=== PATIENT | female | born 1975 | race Caucasian/White ===

== ENCOUNTER 2016-09-21 08:06 | Emergency (ER) | payer MEDICARE | END 2016-09-21 08:39 | disposition home or self-care (01) | DX: K04.7 Periapical abscess without sinus (principal); F17.200 Nicotine dependence, unspecified, uncomplicated ==

== ENCOUNTER 2016-12-25 20:17 | Emergency (ER) | payer MEDICARE ==
[2016-12-25 20:40] LABS: BILIRUBIN,URINE NEGATIVE (NEGATIVE); PH,URINE 6.5 PH (5.0-7.5)
[2016-12-25 20:52] LABS: UA CHARGE (STRIP ONLY) YES; UR CULTURE IF IND NOT INDICATED
[2016-12-25] MEDS ORDERED: SODIUM CHLORIDE 0.9% 1,000 ML IV ONE (21:06)
[2016-12-25] MEDS ORDERED: DEXAMETHASONE 10 MG/ML VIAL IVP STA (21:06)
[2016-12-25] MEDS ORDERED: DEXAMETHASONE 10 MG/ML VIAL ONE (21:07)
--- NOTE | 2016-12-25 21:12 | ED Physician Documentation ---
PD HPI BACK PAIN - Stated complaint Stated Complaint: BACK PX - Chief complaint Chief Complaint: Back Pain - History obtained from History obtained from: Patient - History of Present Illness Timing - onset: How many weeks ago (2) Timing - duration: Weeks (2) Timing - details: Abrupt onset, Still present, Waxing and waning Location: Mid Quality: Pain, Spasm, Sharp, Similar to prior episodes Associated symptoms: No: Fever, Weakness, Numbness, Incontinent of urine, Unable to urinate, Hematuria, Incontinent of stool Improves with: Rest, Position Worsened by: Movement Contributing factors: Other (grand child has been ill and she has been holding him longer than usual) Similar symptoms before: Diagnosis (back spasm) Recently seen: Not recently seen - Additional information Additional information: 41 y/o female with hx of untreated diabetes 2 has had back spasm episodes lasting about 2 days 2weeks ago and then again several days later and now since yesterday and this time she was laying all day on the heating pad and can barely move. She has enough spasm that she is having a hard time breathing deeply and she is worried about her kidneys. She is a diabetic and she does not treat her diabetes and usually runs sugars in the 350 range and she is symptomatic when her sugar is below 220. She reports she is only getting up once per night to urinate and this is an improvement from before she came to [place] when she was getting up 4 times per night. Review of Systems Constitutional: denies: Fever, Chills Eyes: denies: Decreased vision Ears: denies: Ear pain Nose: reports: Rhinorrhea / runny nose, Congestion Throat: denies: Sore throat Cardiac: denies: Chest pain / pressure, Palpitations Respiratory: reports: Cough. denies: Dyspnea GI: reports: Nausea, Vomiting (vomits every morning). denies: Abdominal Pain : denies: Dysuria, Frequency, Discharge Skin: denies: Rash Musculoskeletal: reports: Back pain. denies: Neck pain, Extremity pain, Joint pain, Joint swelling Neurologic: denies: Generalized weakness, Focal weakness, Numbness PD PAST MEDICAL HISTORY - Past Medical History Past Medical History: Yes Cardiovascular: None Respiratory: None Neuro: None Endocrine/Autoimmune: Other GI: None LAPPER: None : None HEENT: None Musculoskeletal: Chronic back pain Derm: None Other Past Medical History: pt states "i'm an undiagnosed diabetic" - Past Surgical History Past Surgical History: Yes General: Appendectomy Ortho: Carpal Tunnel surgery /LAPPER: section, Hysterectomy, Breast reduction - Present Medications Home Medications: Ambulatory Orders Medication Instructions Recorded Confirmed Cyclobenzaprine [Flexeril] 10 mg PO TID PRN #20 tablet 12/25/16 - Allergies Allergies/Adverse Reactions: Allergies Allergy/AdvReac Type Severity Reaction Status Date / Time ketorolac tromethamine * Allergy Anaphylaxis Verified 09/21/16 08:17 [From Toradol] - Social History Does the pt smoke?: Yes Smoking Status: Current every day smoker Does the pt drink ETOH?: Yes Does the pt have substance abuse?: No - Immunizations Immunizations are current?: Yes PD ED PE NORMAL - Vitals Vital signs reviewed: Yes (hypertensive ) - General General: Alert and oriented X 3, Well developed/nourished. No: Other (The patient is moving slowly and is stiff. She is splinting to breath.) - HEENT HEENT: Atraumatic, PERRL, EOMI, Ears normal, Other (dry mucous membranes) - Neck Neck: Supple, no meningeal sign, No bony TTP - Cardiac Cardiac: RRR, No murmur - Respiratory Respiratory: No respiratory distress, Clear bilaterally - Abdomen Abdomen: Soft, Non tender - Back Back: Other (There is dense muscle spam palpable to the paraspinous muscles from about L4 to T10) - Derm Derm: Normal color, Warm and dry, No rash - Extremities Extremities: No deformity, No edema, Other (The feet show good hygine and no wounds. ) - Neuro Neuro: Alert and oriented X 3, No motor deficit, No sensory deficit, Normal speech - Psych Psych: Normal mood, Normal affect Results - Vitals Vitals: Vital Signs - 24 hr 12/25/16 20:20 Temperature 36.4 C L Heart Rate 97 Respiratory 16 Rate Blood Pressure 141/68 H O2 Saturation 97 Oxygen O2 Source Room air - Labs Labs: Laboratory Tests 12/25/16 12/25/16 12/25/16 20:28 20:30 20:30 WBC RBC Hgb Hct MCV MCH MCHC RDW Plt Count MPV Neut # Lymph # Sublette # Eos # Baso # Absolute Nucleated RBC Nucleated RBCs Sodium Potassium Chloride Carbon Dioxide Anion Gap BUN Creatinine Estimated GFR (MDRD) Glucose POC Whole Bld Glucose 318 H Glycated Hemoglobin Estim Average Glucose Calcium Total Bilirubin AST ALT Alkaline Phosphatase Total Protein Albumin Globulin Albumin/Globulin Ratio Lipase Urine Color YELLOW Urine Clarity CLEAR Urine pH 6.5 Ur Specific [place] 1.020 1.020 Urine Protein NEGATIVE Urine Glucose (UA) >=1000 H Urine Ketones NEGATIVE Urine Occult Blood NEGATIVE Urine Nitrite NEGATIVE Urine Bilirubin NEGATIVE Urine Urobilinogen 0.2 (NORMAL) Ur Leukocyte Esterase NEGATIVE Ur Microscopic Review NOT INDICATED Urine Culture Comments NOT INDICATED Urine HCG, Qual NEGATIVE 12/25/16 12/25/16 12/25/16 21:22 21:22 21:22 WBC 14.2 H RBC 4.68 Hgb 15.0 Hct 44.0 MCV 93.9 MCH 32.0 H MCHC 34.1 RDW 13.0 Plt Count 227 MPV 10.2 Neut # 7.3 H Lymph # 5.3 H Sublette # 1.0 Eos # 0.4 Baso # 0.2 H Absolute Nucleated RBC 0.00 Nucleated RBCs 0.0 Sodium 133 L Potassium 3.7 Chloride 99 L Carbon Dioxide 25 Anion Gap 9.0 BUN 12 Creatinine 0.6 Estimated GFR (MDRD) 110 Glucose 362 H POC Whole Bld Glucose Glycated Hemoglobin 11.0 H Estim Average Glucose 269 H Calcium 9.4 Total Bilirubin 0.5 AST 19 ALT 27 Alkaline Phosphatase 60 Total Protein 7.6 Albumin 4.2 Globulin 3.4 Albumin/Globulin Ratio 1.2 Lipase 115 H Urine Color Urine Clarity Urine pH Ur Specific [place] Urine Protein Urine Glucose (UA) Urine Ketones Urine Occult Blood Urine Nitrite Urine Bilirubin Urine Urobilinogen Ur Leukocyte Esterase Ur Microscopic Review Urine Culture Comments Urine HCG, Qual - [facility] (name of study) [facility]: Prelim report reviewed (Impression: Normal and no focal consolidation. 2. Increased interstitial markings with bronchial cuffing are nonspecific but can be seen in the setting of reactive airways disease, broncitis and viral infection.), EMP read indepedently, See rad report Procedures - IVC sono (time) 2104 Bedside IVC sono: IVC measures (cm) (0.87), IVC collapsed c insp (cm) (complete) , Significant dehydration PD MEDICAL DECISION MAKING - ED course Complexity details: considered differential, d/w patient ED course: 41 y/o diabetic female with back spasm and significant dehydration will require some IV hydration and investigation. Departure - Departure Disposition: 01 Home, Self Care Clinical Impression: Back muscle spasm, Dehydration Diabetes type 2, uncontrolled Qualifiers: Diabetes mellitus complication status: with other specified complication Diabetes mellitus fpc insulin use: without fpc use Qualified Code(s) : E11.69 - Type 2 diabetes mellitus with other specified complication Condition: Stable Instructions: ED Dehydration, ED Spasm Back No Trauma, ED Diet Diabetic, ED Hyperglycemia Diabetic Follow-Up: [facility] [Provider Group] Prescriptions: Cyclobenzaprine [Flexeril] 10 mg PO TID PRN #20 tablet PRN Reason: Spasms Comments: Today in the ED your A1C was 11.0 with an average glucose of 269. This will cause symptoms including dehydration. The dehydration will make the muscle spasms worse. Follow up with your regular doctor about treatment of your diabetes. Today in the Emergency Department your blood pressure was elevated. This can happen from the stress of the visit itself, from a current illness or circumstance or from uncontrolled hypertension. If you take blood pressure medications take your usual mediations, have your blood pressure re-checked in an appropriate setting and follow up any elevation with your primary care doctor.
[2016-12-25 21:18] LABS: HCG UR QUAL NEGATIVE
[2016-12-25 21:28] LABS: BASOPHILS # (AUTO) 0.2 10^3/uL (0.0-0.1); BASOPHILS % (AUTO) 1.2 %; EOSINOPHILS # (AUTO) 0.4 10^3/uL (0.0-0.7); EOSINOPHILS % (AUTO) 2.9 %; LYMPHOCYTES # (AUTO) 5.3 10^3/uL (1.5-3.5); LYMPHOCYTES % (AUTO) 37.2 %; MEAN CORPUSCULAR HGB CONC 34.1 g/dL (32.0-36.0); MEAN CORPUSCULAR VOLUME 93.9 fL (81.0-99.0); MEAN PLATELET VOLUME 10.2 fL (7.9-10.8); MONOCYTES % (AUTO) 6.8 %; NEUTROPHILS # (AUTO) 7.3 10^3/uL (1.5-6.6); NEUTROPHILS % (AUTO) 51.9 %; RED BLOOD COUNT 4.68 10^6/uL (4.20-5.40); UNCORRECTED WHITE BLOOD COUNT 14.2 x10^3/uL; WHITE BLOOD COUNT 14.2 x10^3/uL (4.8-10.8)
[2016-12-25 21:43] LABS: ALBUMIN/GLOBULIN RATIO 1.2 (1.0-2.2); BILIRUBIN,TOTAL 0.5 mg/dL (0.2-1.0); CALCIUM 9.4 mg/dL (8.5-10.3); CREATININE 0.6 mg/dL (0.4-1.0); POTASSIUM 3.7 mmol/L (3.5-5.0); TOTAL PROTEIN 7.6 g/dL (6.7-8.2)
[2016-12-25 21:47] LABS: HEMOGLOBIN A1C 1.54 g/dL
--- NOTE | 2016-12-25 22:02 | XRAY Preliminary Report ---
Exam: XR Chest 2 View PA/LAT IMPRESSION: Normal and no focal consolidation. 2. Increased interstitial markings with bronchial cuffing are nonspecific but can be seen in the sett ing of reactive airways disease, bronchitis and viral infection. [facility] SITE ID: [id number]
--- NOTE | 2016-12-25 22:05 | XRAY Report ---
EXAM: CHEST RADIOGRAPHY EXAM DATE: 12/25/2016 09:39 PM. CLINICAL HISTORY: Cough soa. COMPARISON: None. TECHNIQUE: 2 views. FINDINGS: Lungs/Pleura: Increased interstitial markings with peribronchial cuffing No focal opacities evident. No pleural effusion. No pneumothorax. Normal volumes. Mediastinum: Heart and mediastinal contours are unremarkable. Other: None. . IMPRESSION: Normal and no focal consolidation. 2. Increased interstitial markings with bronchial cuffing are nonspecific but can be seen in the sett ing of reactive airways disease, bronchitis and viral infection. [facility] Referring Provider Line: [phone] SITE ID: [id number]
[2016-12-25] MEDS ORDERED: CYCLOBENZAPRINE 10 MG Prepack 2 PO PRN (22:06)
[2016-12-25] MEDS ORDERED: CYCLOBENZAPRINE 10 MG Prepack 2 PO ONE (22:07)
[2016-12-25 23:28] VITALS: BP 136/78
== END 2016-12-25 22:15 | disposition home or self-care (01) ==
LOC: ED 20:17
DX: M62.830 Muscle spasm of back (principal); E86.0 Dehydration; E11.65 Type 2 diabetes mellitus with hyperglycemia; R03.0 Elevated blood-pressure reading, without diagnosis of hypertension; R05 Cough; F17.200 Nicotine dependence, unspecified, uncomplicated
CPT/HCPCS: 36415; 71020; 80053; 81001; 81003; 81025; 83036; 83690; 85025; 87086; 96374; 99283; 99284